=== PATIENT | male | born 1930 | race Caucasian/White ===

== ENCOUNTER 2016-06-10 13:45 | Emergency (ER) | payer OTHER ==
[~2016-06-10] VITALS: Ht 162.6 cm; Wt 64.9 kg
[2016-06-10] MEDS ORDERED: OMEPRAZOLE 20 M20 M1 PO (17:46)
[2016-06-10] MEDS ORDERED: MAGNESIUM OXID400 MG PO (17:46)
[2016-06-10] MEDS ORDERED: FLUOROURACIL40 GM TP (17:46)
[2016-06-10] MEDS ORDERED: CEFDINIR300 MG PO (17:46)
[2016-06-10] MEDS ORDERED: COZAAR 50 MG TA50 M2 PO (17:46)
[2016-06-10] MEDS ORDERED: K-DUR10 MEQ PO (17:47)
[2016-06-10] MEDS ORDERED: GUAIFENESIN/COD10 ML NG (17:47)
[2016-06-10] MEDS ORDERED: CHLORTHALIDONE25 MG PO (17:47)
[2016-06-10 19:56] VITALS: BP 155/65
== END 2016-06-10 19:57 | disposition home or self-care (01) ==
LOC: ER 13:45
DX: T84.020A Dislocation of internal right hip prosthesis, initial encounter (principal); I10 Essential (primary) hypertension; E78.5 Hyperlipidemia, unspecified; Z85.828 Personal history of other malignant neoplasm of skin; Z88.8 Allergy status to other drugs, medicaments and biological substances; W94.12XA Exposure to other prolonged low air pressure, initial encounter; Y93.89 Activity, other specified; Y92.89 Other specified places as the place of occurrence of the external cause; Y99.9 Unspecified external cause status